=== PATIENT | male | born 1965 | race American Indian/Alaskan Native ===

== ENCOUNTER 2017-06-08 04:49 | Emergency (ER) | payer OTHER ==
[2017-06-08 05:06] VITALS: BP 153/82; PULSE 80; RESP 14; TEMP 97.9; O2SAT 97
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
== END 2017-06-08 05:30 | disposition home or self-care (01) ==
LOC: C.ER 04:49
DX: M62.838 Other muscle spasm (principal)

== ENCOUNTER 2018-08-15 08:39 | Day surgery (SDC) | payer OTHER ==
[2018-08-13 11:24] VITALS: BMI 20.9
[2018-08-15] MEDS ORDERED: EPINEPHrine- 1.5 MG in Sodium Chloride 0.9% Irrig 3,000 ML IV ONE (12:30)
[2018-08-15] MEDS ORDERED: ceFAZolin 1 gm in NS 2 GM/200 ML BAG IVPB ONE (12:43)
[2018-08-15] MEDS ORDERED: Bupivacaine HCl 0.5% PF (10 ml) Inj ONE (12:44)
[2018-08-15] MEDS ORDERED: MethylPREDNISolone Depo 40 mg/ml Inj ONE ×4 (12:44→16:40)
[2018-08-15] MEDS ORDERED: Bupivacaine-Epi 0.5%-1:200,000 PF Inj ONE (12:44)
[2018-08-15] MEDS ORDERED: Iohexol 240 (50 ml) ONE (12:44)
[2018-08-15] MEDS ORDERED: methylPREDNISolone Depo 80 mg/ml Inj ONE (12:44)
[2018-08-15] MEDS ORDERED: Lidocaine 2% MPF (5 ml) Inj ONE ×3 (13:08→16:40)
[2018-08-15] MEDS ORDERED: Midazolam 2 MG/2 ML VIAL ONE (13:51)
[2018-08-15] MEDS ORDERED: Propofol 10 mg/ml Inj (20 ML) ONE ×2 (13:51→14:11)
[2018-08-15] MEDS ORDERED: Labetalol 25mg/5ml Syringe ONE (15:09)
[2018-08-15] MEDS ORDERED: Enalaprilat 2.5 MG/2 ML ONE (15:09)
[2018-08-15] MEDS ORDERED: Neostigmine 1:1000 (1 mg/ml) Inj ONE (15:56)
[2018-08-15] MEDS ORDERED: Morphine 4 MG/ML VIAL ONE ×2 (16:26→16:33)
[2018-08-15] MEDS ORDERED: Labetalol 5mg/ml (4ml) IVP STA (17:11)
[2018-08-15] MEDS ORDERED: HYDROmorphone 0.5 mg/0.5 ml ISec ONE (17:26)
[2018-08-15] MEDS: HYDROmorphone 0.5 mg/0.5 ml ISec IVP PRN ×2 (17:26→18:45)
[2018-08-15] MEDS ORDERED: Ropivacaine 0.5% PF (20 ml) inj INJ ONE (17:47)
--- NOTE | 2018-08-15 18:07 | PCM.ANESB7 ---
Adductor Canal Block - Procedure Adductor Canal Block: 17:45-18:00 - Left femoral nerve block, adductor canal approach, done in PACU post-operatively. Using sterile technique, under ultrasound guidance, 20 cc 0.5% ropivacaine injected, 5 cc increments, negative aspiration throughout, 4" stimulplex needle. VSS, patient tolerated procedure well. Block requested by Dr. Mickey Ignacio for post-op pain control.
--- NOTE | 2018-08-15 18:36 | RAD ---
Date of service: 08/15/2018 PROCEDURE: Intraoperative fluoroscopy HISTORY: LEFT HIP JOIN PAIN COMPARISON: Not available TECHNIQUE: Intraoperative fluoroscopy was provided for corticosteroid injection in left hip. Total time of fluoroscopy was 12.5 sec. Cumulative dose was 1.45 mGy. FINDINGS: Multiple fluoroscopic spot films are submitted. IMPRESSION: Fluoroscopy provided.
[2018-08-15 18:38] VITALS: O2SAT 100
[2018-08-15 18:49] VITALS: RESP 18
[2018-08-15 19:46] VITALS: BP 149/91; PULSE 81; TEMP 98.7
--- NOTE | 2018-08-16 23:00 | PCM.SURG1 ---
Surgeon's Initial Post Op Note - Surgeon's Notes Surgeon: Bautista Glez MD Firearms Expert: Ruth Ireland PA-C Type of Anesthesia: General Endo, Block Regional, Local Pre-Operative Diagnosis: A. Left knee: #1 Medial meniscal tear. #2 possible la teral meniscus tear. #3 partial ACL tear (grade 2-3 instability, firm endpoint). #4 small focal chondral defect medial femoral condyle and trochlea. #5 synovitis. B. Left hip: #1 severe DJD. #2 stiffness/loss of range of motion Operative Findings: A. Left knee: #1 complex Medial meniscal tear (2 zones of injury = 1. complex large longitudinal tear posterior horn, multidirectional, junction white-white and white-red zone with poor quality meniscal tissue, not repairable, 2. complex superior surface tearing anterior horn, does not propagate intrasubstance anterior horn, not repairable). #2 lateral meniscus tear (2 zones of injury = 1. Complex tearing free edge, white-white zone mid body extending to posterior horn, not repairable, 2. Peripheral red-red zone large, longitudinal tear encompassing the entire anterior horn, completely detached and unstable anterior horn with anterior root stable, good quality tissue, repairable). #3 partial ACL tear (complete tear anterior medial bundle proximal insertion, detached from lateral femoral condyle, good quality ACL tissue amenable to primary repair/intact posterior lateral bundle insertion at lateral femoral condyle, mid bundle tissue with mild attenuation and small vertical tears in line with the fibers of the ACL). #4 isolated small focal full-thickness chondral defects at medial femoral condyle, lateral tibial plateau, and trochlea (MFC= defect at WB region measuring 5 mm x 3 mm with stable intact normal chondral rim surrounding, trochlea = central defect, surrounding intact rim of normal cartilage, measures 6 mm x 3 mm, lateral plateau = full-thickness chondral defect at posterior lateral plateau underneath pH of LM, measures 3 mm x 2 mm). #5 anterior fat pad with significant/severe inflammation and hypertrophy causing anterior and patellofemoral impingement. #6 significant hypertrophic synovitis all 3 compartments. #7 symptomatic medial plica band (causing friction with chondral surface MFC. B. Left hip: #1 severe DJD. #2 stiffness/loss of range of motion Post-Operative Diagnosis: A. Left knee: #1 complex Medial meniscal tear (2 zones of injury = 1. complex large longitudinal tear posterior horn, multidirectional, junction white-white and white-red zone with poor quality meniscal tissue, not repairable, 2. complex superior surface tearing anterior horn, does not propagate intrasubstance anterior horn, not repairable). #2 lateral meniscus tear (2 zones of injury = 1. Complex tearing free edge, white- white zone mid body extending to PH, not repairable, 2. Peripheral red-red zone, large longitudinal tear encompassing the entire AH, completely detached and unstable AH, anterior root was stable, good quality tissuered-red zone AH tissue, repairable). #3 partial ACL tear (complete tear AM bundle proximal insertion, detached from LFC, good quality ACL tissue amenable to primary repair/intact PL bundle insertion at LFC, mid bundle tissue with mild attenuation and small vertical tears in line with the fibers of the ACL). #4 isolated small focal full-thickness chondral defects at medial femoral condyle, lateral tibial plateau, and trochlea (MFC= defect at WB region measuring 5 mm x 3 mm with stable intact normal chondral rim surrounding, trochlea = central defect, surrounding intact rim of normal cartilage, measures 6 mm x 3 mm, lateral plateau = full-thickness chondral defect at posterior lateral plateau underneath pH of LM, measures 3 mm x 2 mm). #5 anterior fat pad with significant/severe inflammation and hypertrophy causing anterior and patellofemoral impingement. #6 significant hypertrophic synovitis all 3 compartments. #7 symptomatic medial plica band (causing friction with chondral surface MFC. B. Left hip: #1 severe DJD. #2 stiffness/loss of range of motion Operation Performed: A. Left knee arthroscopic: #1 Primary ACL repair. #2 lateral meniscal repair. #3 partial medial meniscectomy. #4 chondroplasty and microfracture 3 focal areas of full-thickness chondral defects M FC, trochlea, lateral plateau. #5 extensive synovectomy all 3 compartments. #6 debridement and resection hypertrophic, inflamed anterior fat pad. #7 debridement and resection symptomatic plica bands. #8 intra-articular PRP injection. B. left hip: Intra-articular fluoroscopic guided cortisone mixture injection Specimen/Specimens Removed: specimen = none. Complications = None. Implants = Arthrex 4.75 mm bio composite swivel lock anchors 2 and. FiberWire/ FiberWire cinch sutures for ACL repair Estimated Blood Loss: EBL {In ML}: 3 Blood Products Given: N/A Drains Used: No Drains Post-Op Condition: Good Date of Surgery/Procedure: 08/15/18 Time of Surgery/Procedure: 16:00
--- NOTE | 2018-08-17 09:45 | OP ---
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 radiofrequency ablation down to the tibial eminence and with the use of the punch, the path for the anchor was created and the sutures were passed through the eyelid of the knotless BioComposite SwiveLock anchor measuring 4.75 mm from [employer]. Once the suture were passed through the eyelid, while my assistance held just very mild tension on the suture, the anchor was then placed successfully with good fixation achieved and resulting anterior horn lateral meniscus repair with amazing stability. The arthroscopic probe was used to carefully evaluate this anterior horn repair and indeed a stable repair construct was established. We then turned our attention to the ACL. ARTHROSCOPIC PRIMARY ACL REPAIR: As stated above, the anteromedial bundle was completely detached proximally at the level of the moapa insertion point at the lateral femoral condyle while the posterolateral bundle was intact. This was reflected accurately on the examination under anesthesia with the most noticeable unstable portion of the exam being the anterior drawer with the foot in neutral and external rotation providing the most instability for an anteromedial bundle isolated tear. The quality of the moapa ACL tissue was carefully evaluated and it was indeed determined that a primary ACL repair can be performed and would be attempted. We started with passage of the suture from distal to proximal along the anteromedial bundle of the ACL. We placed #2 FiberWire suture starting at this most distal aspect and working away proximally with [place] type suture pass resulting in four passes of the #2 FiberWire suture. We then placed the cinch #2 FiberWire suture directly at the mid substance of the repair construct to pack it up. The suture from the #2 FiberWire [place] suture pass as well as the cinch were passed out of the accessory portal after the cinch was placed through the anteromedial bundle with the use of the meniscal scorpion. With all ends of the suture exiting the accessory portal, the PassPort cannula was removed and the punch was brought into the anteromedial portal to allow for access to the lateral femoral condyle fixation for the ACL anteromedial bundle. The moapa insertion point at the lateral femoral condyle was identified and with the use of the punch, a 25 mm pilot fuel engineer hole for the anchor was created. The sutures from the anteromedial bundle were then passed through the eyelid of the 4.75 BioComposite SwiveLock anchor from [employer]. The anchor was placed while my compliance assistant held good tension on the ACL itself. The SwiveLock anchor was placed successfully with good bony fixation achieved and stability. The anchor was tested and found to be well seated with no residual motion or instability. The ACL, anteromedial bundle repair was tested vigorously with the use of the arthroscopic probe and was found to be very stable with no evidence of residual attenuation or instability and there was no gap at the proximal insertion of the anteromedial bundle meaning that there was no gap between the lateral femoral condyle and the repaired anteromedial bundle of the ACL as it was compressed against the lateral femoral condyle bone. ARTHROSCOPIC CHONDROPLASTY AND MICROFRACTURE MEDIAL FEMORAL CONDYLE, TROCHLEA, LATERAL PLATEAU: With the use of the probe, the focal full thickness cartilage defects at the medial femoral condyle, trochlea, lateral plateau were carefully evaluated and sized. As stated before, there was a stable rim of intact cartilage surrounding each one of these focal chondral defects with surrounding intact cartilage throughout the rest of the knee. With use of arthroscopic shaver and radiofrequency ablation as well as the small curette, the bed of the chondral defects were debrided of any residual cartilage exposing the subchondral bone directly. The PowerPick from [employer] was used to create multiple microfracture holes within all three defects. We had started our treatment, chondroplasty/microfracture with the trochlea lesion. Once the microfracture holes were placed with good spacing and a stable rim of cartilage was maintained, we then tested the quality of the microfracture flow and indeed with suction, there was good bloody and fatty return from the microfracture holes with a successful microfracture completed at the trochlea. These steps were then repeated for the full-thickness defect at the medial femoral condyle and at the lateral plateau. Final arthroscopic pictures were taken of the primary ACL repair, the lateral meniscus repair at the anterior horn and the treated posterior horn status post partial lateral meniscectomy portion of the procedure, the partial medial meniscectomy, and residual posterior horn, extensive synovectomy and chondroplasty microfracture of the small three focal chondral defect zones. Once the final images were taken, all arthroscopic fluid and debris were then evacuated from the knee joint. With the help of anesthesia staff, we were able to perform a PRP injection as well. INTRAARTICULAR PLATELET-RICH PLASMAS INJECTION: With the help of anesthesia staff, 15 mL of blood was obtained from a venous stick. The container was then run in the centrifuge by [employer] and 10 mL of PRP were obtained from the supernatant in the centrifuge. The 10 mL were then injected intraarticular under direct visualization in its entirety. The arthroscopic portals were then reapproximated with 2.0 Vicryl suture for deep tissue followed by 3.0 Monocryl suture for skin. Sterile dressings were applied followed by a layer of sterile cast padding from the toes up to the superior thigh followed by the layer of compressive Reza wrap from the toes up to the superior thigh. The knee was then fitted and placed in a postop hinged knee brace locked at 0 degrees extension provided by my office. Knee brace was an absolute medical necessity to protect the ACL repair as well as the lateral meniscus repair while allowing him to ambulate. The brace was provided by my office with the same date of service as surgery. Once the brace was fitted to the patient and locked at 0 degrees extension, the patient was then extubated and transferred to PACU in stable condition and tolerated the procedure well. JUSTIFICATION FOR BILLING AND CODIN. An arthroscopic primary ACL repair was carried out successfully for the anterior medial bundle and therefore was coded and billed as CPT code 19033. 2. Arthroscopic lateral meniscus repair was carried out successfully and therefore was coded and billed as CPT code 94621. 3. Arthroscopic partial medial meniscectomy was carried out successfully and therefore was coded and billed as CPT code 83275. 4. Chondroplasty and microfracture of the three distinct focal chondral defects were treated with the chondroplasty and microfracture with successful microfracture holes placed in all three lesions and therefore was coded and billed as CPT code 10564. 5. An arthroscopic extensive synovectomy of the knee and all three compartments was carried out. A significant amount of surgical time was dedicated to this portion of the procedure as a very detailed extensive synovectomy was carried out that was beyond what is considered as usual and customary in terms as synovectomy performed just to establish better visualization during arthroscopic knee surgery. This extensive synovectomy was carried out to remove pain generators and to resect and debride the symptomatic medial plica band causing friction with the medial femoral condyle and mechanical symptoms, resection and debridement of the hypertrophic/inflamed anterior fat pad causing anterior and patellofemoral impingement, extensive synovectomy of all three compartments removing the hypertrophic and inflamed synovitis to all three compartments. This required a significant amount of surgical time dedicated to this part of the procedure and was coded and billed as CPT code [id number]. 6. Arthroscopic intraarticular PRP injection was carried out successfully and therefore was coded and billed as [id number]. 7. A postop hinged knee brace was fitted and placed on the knee provided by my office at the end of the procedure, this was done out of absolute medical necessity to protect the knee and protect the ACL repair as well as the anterior horn lateral meniscus repair, which was rather delicate as well. The advantage of the postop hinged knee brace is allowing to and weight bear while not causing damage to the surgical repairs that were carried out as well as the ability to unlock the brace while lying down and work on regaining range of motion and home exercise program. Therefore, the postop hinged knee brace was coded and billed with DME code [id number]. DISPOSITION: The patient will be discharged to home once he has recovered from anesthesia. He has been given a prescription for Percocet for pain control. He has been given a prescription for Lovenox for DVT prophylaxis of 40 mg injection once daily subcutaneous for a period of two weeks starting postoperative day #1. He will contact me directly if any questions or concerns. He was instructed to keep the brace and the dressings clean, dry and intact and not to remove anything until he sees me in the office next week and already has his postoperative appointment set up. Bautista Glez MD
== END 2018-08-15 19:40 | disposition home or self-care (01) ==
LOC: C.SDS 08:39
PROVIDERS: ATTEND Student in an Organized Health Care Education/Training Program
DX: M16.12 Unilateral primary osteoarthritis, left hip (principal); S83.512A Sprain of anterior cruciate ligament of left knee, initial encounter; S83.232A Complex tear of medial meniscus, current injury, left knee, initial encounter; M67.862 Other specified disorders of synovium, left knee; M94.262 Chondromalacia, left knee; M65.9 Synovitis and tenosynovitis, unspecified
CPT/HCPCS: 29876; 29880; 29888; 29999; 76000; 97116; 97161; C1713; C1751; G8978; G8979; G8980; J0171; J0690; J1170; J2250; J2270; J2405; J2704; J2710; J3010